=== PATIENT | male | born 1950 | race Caucasian/White ===

== ENCOUNTER 2019-08-20 16:09 | Inpatient (IN) | payer MEDICARE, OTHER ==
[~2019-08-20] VITALS: Ht 167.6 cm; Wt 66.4 kg
[2019-08-20 16:54] LABS: BASOPHILS % 0.3 % (0.0-1.0); EOSINOPHILS % 0.6 % (0.0-6.0); HEMATOCRIT 39.6 % (38.2-49.6); LYMPHOCYTES # (AUTO) 0.4 (1.0-3.2); LYMPHOCYTES % 10.7 % (18.0-39.1); MEAN CORPUSCULAR HEMOGLOBIN 27.5 pg (28-32); MEAN CORPUSCULAR HGB CONC 32.8 g/dL (31-35); MEAN CORPUSCULAR VOLUME 83.7 fL (81-99); MONOCYTES # (AUTO) 0.2 (0.2-0.8); MONOCYTES % 6.1 % (4.4-11.3); NEUTROPHILS # (AUTO) 2.7 (2.1-6.9); PLATELET COUNT 61 x10e3/uL (140-360); RED BLOOD COUNT 4.73 x10e6/uL (4.3-5.7); RED CELL DISTRIBUTION WIDTH 16.7 % (11.7-14.4)
[2019-08-20 17:09] LABS: ALANINE AMINOTRANSFERASE 41 IU/L (0-55); ALBUMIN 3.1 g/dL (3.5-5.0); ALBUMIN/GLOBULIN RATIO 0.9 (0.8-2.0); ALKALINE PHOSPHATASE 150 IU/L (40-150); ANION GAP 14.4 mmol/L (8-16); BLOOD UREA NITROGEN 10 mg/dL (7-26); BUN/CREATININE RATIO 14 (6-25); CARBON DIOXIDE 21 mmol/L (22-29); CHLORIDE 102 mmol/L (98-107); CREATINE KINASE 48 IU/L (30-200); EST GLOMERULAR FILTRATION RATE > 60 ML/MIN (60-); GLUCOSE 250 mg/dL (74-118); POTASSIUM 4.4 mmol/L (3.5-5.1); SODIUM 133 mmol/L (136-145)
[2019-08-20] MEDS: CEFEPIME 1GM/NS 0.9% 50 ML 50 ML IV SCH (17:30)
[2019-08-20] MEDS ORDERED: SODIUM CHLORIDE 0.9% 1000ML 1,000 ML IV STA ×3 (18:34→20:35)
--- NOTE | 2019-08-20 18:56 | Emergency Department Note ---
History of Present Illnes History of Present Illness Chief Complaint: Respiratory Stated Complaint: POSSIBLE RT LOWER LOBE PNEUMONIA/SHINGLES: Chief Complaint Comment sent over from dr hunter's office for further eval of non painful shingles and right lower lobe pneumonia pt not in distress at this time History of Present Illness This is a 68 year old male arrived for RUQ abdominal pain and cough, told by Dr. Nina that he has PNA . 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 Any updates have been documented here. (MIGUELITO JUNIOR DO) Past Medical History Recent Fever: No Clinical Suspicion of Infectio: No New/Unexplained Change in Ment: No Past Medical History: Diabetes Other Medical History: cirrhosis Past Surgical History: Cholecysctectomy Other Surgery: colonoscopy egd (MIGUELITO JUNIOR DO) Social History Smoking Cessation: Former smoker Counseling Performed: No Alcohol Use: None Any Illegal Drug Use: No TB Exposure/Symptoms: No Physically hurt or threatened: No (MIGUELITO JUNIOR DO) Other Last Tetanus: utd Any Pre-Existing Lines (PICC,: No Is patient up to date on immun: Yes Last Flu: utd Last Pneumovax: utd (MIGUELITO JUNIOR DO) Review of Systems Review of Systems Constitutional: fever EENTM: no symptoms Cardiovascular: chest pain Respiratory: cough Gastrointestinal: abdominal pain Integumentary: rash Psychological: no symptoms, as per HPI, anxiety, depressed, emotional problems, other Endocrine: no symptoms, as per HPI, excessive sweating, flushing, intolerance to cold, intolerance to heat, increased hunger, increased thirst, increased urination, unexplained weight gain, unexplained weight loss, other Review of other systems All other systems reviewed and negative. (MIGUELITO JUNIOR DO) Physical Exam Related Data Allergies: Coded Allergies: No Known Allergies (Unverified , 08/20/19) Triage Vital Signs Vital Signs Date Time Temp Pulse Resp B/P (MAP) Pulse Ox O2 Delivery O2 Flow Rate FiO2 08/20/19 16:18 97.8 86 16 149/91 94 (SANDHIR, AMBICA, DO) Physical Exam CONSTITUTIONAL Constitutional: well-developed, well-nourished HENT HENT: normocephalic, atraumatic, oropharynx clear/moist, nose normal HENT - Ear: left ext ear normal, right ext ear normal EYES Eyes: PERRL, conjunctivae normal NECK Neck: ROM normal PULMONARY Pulmonary: effort normal, breath sounds normal CARDIOVASCULAR Cardiovascular: regular rhythm, heart sounds normal, capillary refill normal, normal rate GASTROINTESTINAL Abdominal: soft, bowel sounds normal, tender GENITOURINARY Genitourinary: exam deferred SKIN Skin: warm, dry, rash (vesicular rash noted over abdomen and wrapping around back in a dermtomal pattern ) MUSCULOSKELETAL Musculoskeletal: ROM normal NEUROLOGICAL Neurological: alert, oriented x 3, no gross motor or sensory deficits PSYCHOLOGICAL Psychiatric/behavioral: mood/affect normal, judgement normal (HEMAR, AMBICA, DO) Results Laboratory Result Diagram: 08/20/19 1634 08/20/19 1634 Laboratory Laboratory Tests Test 08/20/19 17:33 08/20/19 16:34 Lactic Acid Level 2.9 mmol/L (0.5-2.0) White Blood Count 3.26 x10e3/uL (4.8-10.8) Red Blood Count 4.73 x10e6/uL (4.3-5.7) Hemoglobin 13.0 g/dL (14.0-18.0) Hematocrit 39.6 % (38.2-49.6) Mean Corpuscular Volume 83.7 fL (81-99) Mean Corpuscular Hemoglobin 27.5 pg (28-32) Mean Corpuscular Hemoglobin Concent 32.8 g/dL (31-35) Red Cell Distribution Width 16.7 % (11.7-14.4) Platelet Count 61 x10e3/uL (140-360) Neutrophils (%) (Auto) 82.0 % (38.7-80.0) Lymphocytes (%) (Auto) 10.7 % (18.0-39.1) Monocytes (%) (Auto) 6.1 % (4.4-11.3) Eosinophils (%) (Auto) 0.6 % (0.0-6.0) Basophils (%) (Auto) 0.3 % (0.0-1.0) Neutrophils # (Auto) 2.7 (2.1-6.9) Lymphocytes # (Auto) 0.4 (1.0-3.2) Monocytes # (Auto) 0.2 (0.2-0.8) Eosinophils # (Auto) 0.0 (0.0-0.4) Basophils # (Auto) 0.0 (0.0-0.1) Absolute Immature Granulocyte (auto 0.01 x10e3/uL (0-0.1) Sodium Level 133 mmol/L (136-145) Potassium Level 4.4 mmol/L (3.5-5.1) Chloride Level 102 mmol/L (98-107) Carbon Dioxide Level 21 mmol/L (22-29) Anion Gap 14.4 mmol/L (8-16) Blood Urea Nitrogen 10 mg/dL (7-26) Creatinine 0.70 mg/dL (0.72-1.25) Estimat Glomerular Filtration Rate > 60 ML/MIN (60-) BUN/Creatinine Ratio 14 (6-25) Glucose Level 250 mg/dL (74-118) Calcium Level 9.0 mg/dL (8.4-10.2) Total Bilirubin 3.1 mg/dL (0.2-1.2) Aspartate Amino Transf (AST/SGOT) 38 IU/L (5-34) Alanine Aminotransferase (ALT/SGPT) 41 IU/L (0-55) Alkaline Phosphatase 150 IU/L (40-150) Creatine Kinase 48 IU/L (30-200) Creatine Kinase MB 1.20 ng/mL (0-5.0) Troponin I 0.056 ng/mL (0-0.300) Total Protein 6.6 g/dL (6.5-8.1) Albumin 3.1 g/dL (3.5-5.0) Globulin 3.5 g/dL (2.3-3.5) Albumin/Globulin Ratio 0.9 (0.8-2.0) Lipase 18 U/L (8-78) Lab results reviewed: Yes Laboratory comments Elevated Lactic noted: 2.9 (MIGUELITO JUNIOR, ) Critical Care Time Total Critical Care Time (min): 35 Critical care time exclusive o: separately billable procedures Critcal care necessary due to: sepsis Critcal care time spent by me: blood dram for specimens, examination of patient, obtaining hx from patient/surrogate, pulse oximetry, re-evaluation of p atient condition Subsequent provider I assumed direction of critical care for this patient from another provider of my specialty. (MIGUELITO JUNIOR DO) Assessment & Plan Assessment & Plan Problems: (1) Severe sepsis (2) Pneumonia (3) Herpes zoster Assessment & Plan Severe Sepsis Time: 1758 1. Source (time: PNA on CXR ) 2. SIRS (time: RR 22 WBC <3 ) 1655 3. Organ Dysfunction (time: 1758) Interventions: Blood cultures collected Lactic acid collected Broad Spectrum antibiotics given Lactic acid #1: 2.9 (time resulted) Lactic acid #2: (time resulted) (MIGUELITO JUNIOR DO) Reassessment Reassessment 08/20/2019 2100 : VOlume reassessment done at bedside with capillary refill at 2 seconds (DEE MARK DO) Depart Disposition: ADMITTED Last Vital Signs Date Time Temp Pulse Resp B/P (MAP) Pulse Ox O2 Delivery O2 Flow Rate FiO2 08/20/19 16:58 98.7 85 22 145/87 99 (MIGUELITO JUNIOR DO) Medications in the ED Cefepime HCl 50 ml @ 100 mls/hr Q24H IV ; Start 08/20/19 at 17:30; Stop 08/27/19 at 17:29 (MIGUELITO JUNIOR DO) MIGUELITO JUNIOR DO August 20, 2019 18:56 DEE MARK DO August 21, 2019 02:36
[2019-08-20] MEDS ORDERED: SODIUM CHLORIDE 0.9% 50ML 0 ML ONE (20:39)
[2019-08-20] MEDS ORDERED: IOPAMIDOL 370 MG/ML 200 ML INFUS..BTL INJ ONE (20:39)
[2019-08-20] MEDS ORDERED: PNEUMOCOCCAL VACCINE POLYVALENT 23 MCG/0.5 ML VIAL IM SCH (23:30)
[2019-08-20 23:55] VITALS: BP 154/94
[2019-08-21] VITALS (10 sets, daily range): BP systolic 137–154; BP diastolic 78–94
[2019-08-21] MEDS: VALACYCLOVIR HCL 500 MG TAB PO SCH ×4 (00:59→22:00)
--- NOTE | 2019-08-21 02:04 | NUR ---
Received pt via stretcher from ED. Pt awake a/o x3 denies discomfort at this time. No s/sx of acute distress noted. Pt not to have red colored rash/blister to rlq of abd and rlq of back with trail leading between both wounds. Blisters to back are closed no drainage noted. Pt orientated to room and hospital policy, verbalized understanding. Call light within reach all personal items in reach. Will cont to mon
[2019-08-21] MEDS: MORPHINE SULFATE INJ 4 MG/ML INJ 1ML IV PRN ×3 (04:09→22:58)
[2019-08-21] MEDS: ONDANSETRON HCL INJ 2MG/ML 2ML 2 MG/ML VIAL IV PRN ×2 (04:09→15:25)
[2019-08-21 05:25] LABS: BASOPHILS % 0.6 % (0.0-1.0); EOSINOPHILS # (AUTO) 0.2 (0.0-0.4); EOSINOPHILS % 5.7 % (0.0-6.0); HEMATOCRIT 35.9 % (38.2-49.6); HEMOGLOBIN 11.8 g/dL (14.0-18.0); LYMPHOCYTES # (AUTO) 0.5 (1.0-3.2); LYMPHOCYTES % 14.2 % (18.0-39.1); MEAN CORPUSCULAR HEMOGLOBIN 27.5 pg (28-32); MEAN CORPUSCULAR HGB CONC 32.9 g/dL (31-35); MEAN CORPUSCULAR VOLUME 83.7 fL (81-99); MONOCYTES # (AUTO) 0.6 (0.2-0.8); NEUTROPHILS # (AUTO) 2.2 (2.1-6.9); NEUTROPHILS % 63.2 % (38.7-80.0); PLATELET COUNT 51 x10e3/uL (140-360); RED BLOOD COUNT 4.29 x10e6/uL (4.3-5.7); RED CELL DISTRIBUTION WIDTH 16.4 % (11.7-14.4)
[2019-08-21 05:51] LABS: ALANINE AMINOTRANSFERASE 34 IU/L (0-55); ALBUMIN 2.6 g/dL (3.5-5.0); ALBUMIN/GLOBULIN RATIO 0.9 (0.8-2.0); ALKALINE PHOSPHATASE 118 IU/L (40-150); ANION GAP 11.9 mmol/L (8-16); BLOOD UREA NITROGEN 8 mg/dL (7-26); BUN/CREATININE RATIO 13 (6-25); CALCIUM 7.5 mg/dL (8.4-10.2); CARBON DIOXIDE 24 mmol/L (22-29); CHLORIDE 102 mmol/L (98-107); CREATININE, SERUM 0.61 mg/dL (0.72-1.25); EST GLOMERULAR FILTRATION RATE > 60 ML/MIN (60-); GLUCOSE 191 mg/dL (74-118); POTASSIUM 3.9 mmol/L (3.5-5.1); SODIUM 134 mmol/L (136-145)
--- NOTE | 2019-08-21 07:00 | NUR ---
RCD PT AT BED PT IS ALERT AND ORIENTED PT RESTING ON BED IV PATENT BY SALINE FLUSH SHINGLES ON RT UPPER CHEST BED LOW AND LOCKED CALL LIGHT IN REACH
[2019-08-21] MEDS ORDERED: PANTOPRAZOLE SO40 MG PO (09:02)
[2019-08-21] MEDS ORDERED: METFORMIN HCL500 MG PO (09:02)
[2019-08-21] MEDS ORDERED: GLIPIZIDE5 MG PO (09:02)
[2019-08-21] MEDS ORDERED: LACTULOSE20 GM/30 M PO (09:02)
[2019-08-21] MEDS ORDERED: XIFAXAN550 MG PO (09:02)
[2019-08-21] MEDS ORDERED: PROPRANOLOL HCL10 MG PO (09:10)
--- NOTE | 2019-08-21 09:51 | Diagnostic Imaging Report ---
EXAMINATION: CHEST SINGLE (PORTABLE) INDICATION: Chest pain COMPARISON: None FINDINGS: LINES/TUBES:EKG leads overlie the chest. LUNGS:The lungs are moderately inflated. Right basilar opacity consistent with subsegmental atelectasis. PLEURA:Moderate right pleural effusion. No significant left pleural effusion. No pneumothorax. MEDIASTINUM:The cardiomediastinal silhouette appears normal in size and shape. BONES/SOFT TISSUES:No acute osseous injury. ABDOMEN:No free air under the diaphragm. IMPRESSION: Moderate right pleural effusion. Associated right basilar opacity, likely subsegmental atelectasis. Signed by: Moustapha Arrieta MD on 08/21/2019 9:48 AM
[2019-08-21] MEDS ORDERED: VALACYCLOVIR HCL 500 MG TAB PO SCH (10:00)
[2019-08-21] MEDS: GLIPIZIDE 5 MG TAB PO SCH (10:00)
[2019-08-21] MEDS: PANTOPRAZOLE SOD 40 MG TABEC PO SCH (10:00)
[2019-08-21] MEDS: LACTULOSE SYRUP 20 GM/30 ML UDC PO SCH (10:00)
[2019-08-21] MEDS: RIFAXIMIN 550 MG TABLET PO SCH ×2 (10:00→16:24)
[2019-08-21] MEDS: AZITHROMYCIN 250 MG TAB PO SCH (10:45)
--- NOTE | 2019-08-21 11:03 | History and Physical ---
HISTORY OF PRESENT ILLNESS: Mr. Grajeda is a 68-year-old man with history of diabetes, hypertension, and liver cirrhosis, that started on July 09 with dry cough, had a syncopal episode on July 16 and July 17, where he was taken to the ER. He had a chest x-ray done there, that shows elevation of right hemidiaphragm with hazy opacity of right lung suspicious for atelectasis. The screen of infection could not be done at that time. The patient continued to complain of cough. Three days ago, developed a right abdominal rash consistent with herpes zoster infection. The patient is still complaining of dry cough and lower chest pain. Repeated chest x-ray shows consolidation, so the patient was sent to the emergency room for admission. PAST MEDICAL HISTORY: He has diabetes. 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 SOCIAL HISTORY: He was a former alcoholic, but he quit 12 years ago. He had never smoked. ALLERGIES: NO KNOWN DRUG ALLERGIES. PAST SURGICAL HISTORY: He had cholecystectomy. PHYSICAL EXAMINATION: GENERAL: Today, he is awake and alert. VITAL SIGNS: Temperature is 98.1, blood pressure is 147/93. HEART: Regular rate. LUNGS: Poor inspiratory effort. ABDOMEN: Distended with some tenderness in the right upper quadrant. LABORATORY DATA: On the blood work; white count 3.51, hemoglobin 11.8, hematocrit 35.9, and platelets are 51,000. Potassium 3.9, creatinine is 0.61, glucose was 191. Bilirubin 2.7. Urine culture and blood cultures are pending. Chest x-ray and abdominal and pelvic CT reports are pending. ASSESSMENT: 1. Right lower lobe pneumonia. 2. Herpes zoster infection. 3. Abdominal distention. 4. Liver cirrhosis. 5. Diabetes type 2 with hyperglycemia. 6. Hypertension. PLAN: At present time is to start the patient on Valtrex 1 g p.o. q.8 hours. Restart home medications. ADA diet, 1800 calories. We are going to get an Infectious Disease consult with Dr. Conn and a Pulmonary consult with Dr. French. Continue IV cefepime. All this was discussed in detail with the patient. All questions were answered to satisfaction. Also, case was discussed with . MD BRYAN Radford/RENE /[id number]
--- NOTE | 2019-08-21 11:13 | Diagnostic Imaging Report ---
EXAM: CT Abdomen and Pelvis WITH intravenous contrast INDICATION: Hyperbilirubinemia COMPARISON: None. TECHNIQUE: Abdomen and pelvis were scanned utilizing a multidetector helical scanner from the lung base to the pubic symphysis after administration of IV contrast. Coronal and sagittal reformations were obtained. Routine protocol was performed. Scan was performed during portal venous phase. IV CONTRAST: 100mL of Isovue 370 ORAL CONTRAST: Water RADIATION DOSE: Total DLP: 289 mGy*cm Dose modulation, iterative reconstruction, and/or weight based adjustment of the mA/kV was utilized to reduce the radiation dose to as low as reasonably achievable. IMPRESSION: I reviewed the images and preliminary report provided by Dr. Carrera and agree with the described findings in the preliminary report. Findings of hepatic cirrhosis with splenomegaly and upper abdominal portosystemic varices consistent with portal hypertension. Small volume abdominal ascites. Large right pleural effusion. Signed by: Moustapha Arrieta MD on 08/21/2019 11:07 AM
[2019-08-21 11:24] LABS: INR 1.15; PROTHROMBIN TIME 15.4 seconds (11.9-14.5)
--- NOTE | 2019-08-21 11:57 | NUR ---
CONSULT Mr. Grajeda is a 68-year-old man with history of diabetes, hypertension, and liver cirrhosis, that started on July 09 with dry cough, had a syncopal episode on July 16 and July 17, where he was taken to the ER. He had a chest x-ray done there, that shows elevation of right hemidiaphragm with hazy opacity of right lung suspicious for atelectasis. The screen of infection could not be done at that time. The patient continued to complain of cough. Three days ago, developed a right abdominal rash consistent with herpes zoster infection. The patient is still complaining of dry cough and lower chest pain. Repeated chest x-ray shows consolidation, so the patient was sent to the emergency room for admission. PAST MEDICAL HISTORY: He has diabetes. 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 SOCIAL HISTORY: He was a former alcoholic, but he quit 12 years ago. He had never smoked. ALLERGIES: NO KNOWN DRUG ALLERGIES. PAST SURGICAL HISTORY: He had cholecystectomy. [id number]
[2019-08-21] MEDS: INSULIN GLARGINE 100 UNITS/ML VIAL SQ SCH ×2 (12:00→21:00)
--- NOTE | 2019-08-21 14:52 | NUR ---
THEY DRAINED 1200 ML DARK YELLOW FLUID SEND SAMPLE FOR LAB
--- NOTE | 2019-08-21 15:00 | NUR ---
PT BACK AFTER PROCEDURE PT IS ALERT AND ORIENTED VITALS CHECKED NO SIGNS OF ANY BLEEDING ON THE NEEDLE SITE RT UPPER BACK
--- NOTE | 2019-08-21 15:09 | Consultation ---
DATE OF CONSULTATION: Pulmonary Consultation The patient of Dr. Cuello. 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 He has had a cough for 6 weeks. Cough has been nonproductive, but he had an episode of syncope or near syncope, history of hypertension, cirrhosis, diabetes. He is complaining of some right-sided pain, which he attributes to herpes zoster. Had history of pneumonia as a child. ALLERGIES: NO KNOWN ALLERGIES. SOCIAL HISTORY: G[facility] in [facility]. Never smoked, drank in the past. PAST SURGICAL HISTORY: Does admit to having gallbladder surgery. MEDICATIONS: Included glipizide, lactulose, cough syrup, metformin, Protonix, Inderal, Robaxin. PHYSICAL EXAMINATION: GENERAL: This is a slight white male, in no acute distress. Looks his stated age. VITAL SIGNS: Temperature 97.8, pulse 86, respirations 16, blood pressure 147/93. HEAD: Normocephalic and atraumatic. EYES: Extraocular movements intact. LUNGS: Diminished breath sounds, right base. HEART: Regular rhythm. ABDOMEN: Obese. Questionable ascites. EXTREMITIES: Nonedematous. IMPRESSION: Right pleural effusion. Question parapneumonic. Question hepatic hydrothorax. PLAN: Thoracentesis, antibiotics, cough suppressant, and continue home medication. MD LIZETTE Martinez/SAGEL /[id number]
--- NOTE | 2019-08-21 15:20 | Diagnostic Imaging Report ---
PROCEDURE: Ultrasound-guided thoracentesis Procedural Personnel Attending physician(s): Moustapha Arrieta MD Fellow physician(s): None Resident physician(s): None Advanced practice provider(s): None Pre-procedure diagnosis: Pleural effusion Post-procedure diagnosis: Same Indication: Pleural effusion with compromised respiration Additional clinical history: None Complications: No immediate complications. IMPRESSION: Ultrasound-guided thoracentesis with drainage of 1200 mL of serous fluid. Plan: Resume care by clinical team. PROCEDURE SUMMARY: - Limited thoracic ultrasound - Ultrasound-guided thoracentesis - Additional procedure(s): None PROCEDURE DETAILS: Pre-procedure Consent: Informed consent for the procedure including risks, benefits and alternatives was obtained and time-out was performed prior to the procedure. Preparation: The site was prepared and draped using maximal sterile barrier technique including cutaneous antisepsis. Anesthesia/sedation Level of anesthesia/sedation: No sedation Anesthesia/sedation administered by: Not applicable Total intra-service sedation time (minutes): NA Limited thoracic ultrasound Limited thoracic ultrasound was performed using a curved transducer. A safe window for thoracentesis was identified. Left hemithorax findings: NA Right hemithorax findings: Large pleural effusion Thoracentesis Local anesthesia was administered. The pleural space was accessed under real-time ultrasound guidance and fluid return confirmed position. The fluid was drained. The catheter was removed, and a sterile bandage was applied. Catheter placed: 5F Shara Post-drainage hemithorax findings: No visible pleural effusion Additional Details Additional description of procedure: None Equipment details: None Specimens removed: Pleural fluid Estimated blood loss (mL): Less than 10 Standardized report: [id number] Attestation Signer name: Moustapha Arrieta MD I attest that I was present for the entire procedure. I reviewed the stored images and agree with the report as written. Signed by: Moustapha Arrieta MD on 08/21/2019 3:10 PM
--- NOTE | 2019-08-21 15:23 | Diagnostic Imaging Report ---
EXAMINATION: CHEST SINGLE (PORTABLE) INDICATION: Postprocedural COMPARISON: Chest radiograph 08/20/2019 FINDINGS: LINES/TUBES:None LUNGS:The lungs are moderately inflated. Mild left basilar patchy opacity. PLEURA:Interval resolution of right pleural effusion status post thoracentesis. No pneumothorax MEDIASTINUM:The cardiomediastinal silhouette appears unchanged in size and shape. BONES/SOFT TISSUES:No acute osseous injury. ABDOMEN:No free air under the diaphragm. IMPRESSION: No pneumothorax status post right thoracentesis. Interval resolution of right pleural effusion. Mild left basilar patchy opacity, most likely subsegmental atelectasis. Signed by: Moustapha Arrieta MD on 08/21/2019 3:17 PM
[2019-08-21] MEDS ORDERED: SODIUM CHLORIDE 0.9% 250ML 250 ML ONE (15:34)
[2019-08-21 16:21] LABS: BODY FLUID TYPE PLEURAL
[2019-08-21 16:22] LABS: BODY FLUID APPEARANCE SL.CLOUDY; BODY FLUID COLOR GREEN
[2019-08-21] MEDS: CEFEPIME 1GM/NS 0.9% 50 ML 50 ML IV SCH (16:25)
[2019-08-21 17:07] LABS: RBC,BODY FLUID 2016 cells/uL; WBC,BODY FLUID 228 cells/uL
[2019-08-21 17:25] LABS: LYMPHOCYTES,BODY FLUID 23 %; MONO/MACROPHG,BODY FLUID 10 %; NEUTROPHILS,BODY FLUID 52 %; OTHER CELLS,BODY FLUID 15 %
--- NOTE | 2019-08-21 18:41 | NUR ---
PT RESTING ON BED BED SIDE REPORT GIVEN TO ONCOMING NURSE
--- NOTE | 2019-08-21 19:20 | NUR ---
Patient received sitting up in bed. AAO x 4. Patient had no complaints of pain. Respirations even and non-labored. Fall precautions implemented. Patient instructed to call for assistance when needed. Call light within reach.
[2019-08-21] MEDS: GUAIFENESIN/CODEINE 10 ML CUP PO PRN (22:58)
--- NOTE | 2019-08-21 23:46 | Consultation ---
DATE OF CONSULTATION: REASON FOR CONSULTATION: Herpes zoster. HISTORY OF PRESENT ILLNESS: This patient is a 68-year-old male with history of diabetes mellitus, liver cirrhosis, comes in with dry cough, not feeling well. Chest x-ray showed right hemidiaphragm with hazy opacity in the right lung suspicious for atelectasis. The patient was also having some cough. He was seen by Pulmonary. During the stay has had this vesicular rash noted on the right upper quadrant of the abdomen. I was asked to see him. Currently lying in bed comfortably. PAST MEDICAL HISTORY: As above. PAST SURGICAL HISTORY: As above. ALLERGIES: NKA. SOCIAL HISTORY: There is no smoking, drug abuse, or alcohol abuse. FAMILY HISTORY: Hypertension. REVIEW OF SYSTEMS: Besides the pain and the cough, HEENT: Negative. PULMONARY: Negative. CARDIAC: Negative. : Negative. SKIN: There are no other rashes except on the abdomen. LABORATORY DATA: White count 3.5, hemoglobin 11.8. His sodium 134, potassium 3.9 with a creatinine 0.61. MEDICATIONS: He is currently on morphine, valacyclovir, azithromycin, cefepime, and metformin. His chest x-ray, chest CT, all noted. He had large right pleural effusion. PHYSICAL EXAMINATION: GENERAL: He is currently alert, oriented, does not seem to be in acute distress. VITAL SIGNS: Stable, afebrile. HEENT: He is not icteric. NECK: Supple. CHEST: A few crackles. COR: S1 and S2. ABDOMEN: Soft. Bowel sounds present. No tenderness. EXTREMITIES: No edema. SKIN: No rash. The patient underwent ultrasound-guided thoracocentesis, 1200 mL of clear liquid was aspirated, studies still pending. IMPRESSION: 1. Right upper quadrant herpes zoster. 2. Pneumonia, community acquired, probably due to incapacity to take a deep breath and cough. 3. Sepsis on admission. 4. Liver cirrhosis. 5. Diabetes mellitus. PLAN: 1. Agree with cefepime. Agree with azithromycin. Agree with Valtrex. We will keep patient on contact isolation. 2. Further recommendations to follow for his herpes zoster on the right upper quadrant of abdomen, liver cirrhosis, diabetes, neuropathy, hypertension, and pneumonia could be aspiration versus inability to take a deep breath versus community-acquired. Agree with choice of antibiotic and 5 days of antibiotic as ordered. MD MONIQUE Webster /[id number]
[2019-08-22] VITALS (8 sets, daily range): BP systolic 119–153; BP diastolic 74–92
--- NOTE | 2019-08-22 05:02 | NUR ---
radioactivity technician called reporting patient's heart rate as 135. Dr. Ewa Cuello paged. Awaiting call back.
[2019-08-22] MEDS: VALACYCLOVIR HCL 500 MG TAB PO SCH ×3 (05:59→22:23)
--- NOTE | 2019-08-22 06:11 | NUR ---
Dr. Cuello called back. New order given for EKG. Reason: Elevated heartt rate of 132-135.
--- NOTE | 2019-08-22 07:00 | NUR ---
Walking rounds done. Patient resting comfortably. BSSR given to oncoming nurse.
[2019-08-22] MEDS ORDERED: FUROSEMIDE 20 MG TAB PO SCH (09:00)
[2019-08-22] MEDS ORDERED: SPIRONOLACTONE 25 MG TAB PO SCH (09:00)
[2019-08-22] MEDS: LACTULOSE SYRUP 20 GM/30 ML UDC PO SCH (09:00)
[2019-08-22] MEDS ORDERED: ONDANSETRON HCL 4 MG ORAL DISINTEGRATING TAB PO PRN (10:00)
[2019-08-22] MEDS: MORPHINE SULFATE INJ 4 MG/ML INJ 1ML IV PRN ×2 (10:30→16:11)
[2019-08-22] MEDS: PROPRANOLOL HCL 10 MG TAB PO SCH (10:45)
[2019-08-22] MEDS: GLIPIZIDE 5 MG TAB PO SCH (10:46)
[2019-08-22] MEDS: RIFAXIMIN 550 MG TABLET PO SCH ×2 (10:46→17:25)
[2019-08-22] MEDS: AZITHROMYCIN 250 MG TAB PO SCH (10:47)
[2019-08-22] MEDS: PANTOPRAZOLE SOD 40 MG TABEC PO SCH (10:48)
[2019-08-22] MEDS: INSULIN GLARGINE 100 UNITS/ML VIAL SQ SCH ×2 (10:50→21:00)
--- NOTE | 2019-08-22 11:04 | Progress Note ---
DATE: 08/22/2019 SUBJECTIVE: Mr. Grajeda is a 68-year-old man with history of diabetes, hypertension, and liver cirrhosis that on July 09 started with dry cough, had a syncopal episode that took him to the emergency room where he had a chest x-ray that showed elevation of right hemidiaphragm and hazy opacity of right lung base. The patient continued to have a cough for syncopal episode, came to the office complaining of right side abdominal rash positive for herpes zoster infection. The patient was complaining of chest pain and shortness of breath and dry cough, so he was sent to the emergency room for admission. After workup, the patient was found to have a right pleural effusion. He underwent thoracentesis and probably effusion is due to his liver cirrhosis. OBJECTIVE: GENERAL: He is awake and alert, and cough is getting better. VITAL SIGNS: Temperature is 97.4, blood pressure 131/89. HEART: Regular rate. LUNGS: Poor inspiratory effort. ABDOMEN: Distended and soft. LABORATORY DATA: Blood work; white count is 3.51, hemoglobin 11.8, hematocrit 35.9, platelets are 51,000, glucose 216. Foster virus is pending. Cultures, urine and blood cultures negative. We are awaiting for thoracic fluid culture results. IMAGING: Chest x-ray done yesterday showed no pneumothorax, status post right thoracentesis, internal resolution of right pleural effusion, mild left basilar patchy opacity, probably atelectasis, had a thoracentesis ultrasound and he had 1200 mL removed. Abdominal and pelvic CT showed hepatic cirrhosis with splenomegaly and upper abdominal portosystemic varices consistent with portal hypertension with large right pleural effusion. ASSESSMENT: 1. A large right pleural effusion, status post thoracentesis. 2. Herpes zoster infection. 3. Abdominal distension. 4. Liver cirrhosis with portal hypertension. 5. Diabetes type 2 with hyperglycemia. 6. Hypertension. PLAN: At present time is to continue Valtrex 1 g p.o. q.8 hours. Restart home medications, ADA diet 1800 calorie, sliding scale with insulin. He is on IV cefepime. We continue to monitor him. We are going to get a GI consult with Dr. Crow. If stable, he will be able to go home tomorrow. All this was discussed with the patient. All questions were answered to satisfaction. I spent more than 30 minutes examining patient, reviewing overnight event, lab results, and discussing plan of care with him. MD BRYAN Radford/RENE /[id number]
--- NOTE | 2019-08-22 12:00 | Progress Note ---
DATE: SUBJECTIVE: The patient is seen and evaluated. Available labs and notes reviewed. is in the room. Discussed with the and questions answered. REVIEW OF SYSTEMS: Complaining of right abdominal and flank rash with burning, itching, and pain. Otherwise, no nausea, no vomiting, no fever, no chills, no chest pain, shortness of breath improved after thoracentesis. OBJECTIVE: VITAL SIGNS: Temperature 97.4, pulse is 123, respirations 20, and blood pressure 131/89. GENERAL: Alert and oriented, no acute distress. CV: S1-S2. CHEST: Equal expansion. Clear to auscultation. No acute distress. ABDOMEN: Soft, nontender. No distention. Right quadrant abdominal lesions noted. EXTREMITIES: Moves all. No acute finding. MEDICATIONS: Reviewed, on valacyclovir, cefepime, Zithromax, and rifaximin. MICROBIOLOGY: Blood culture negative on 08/19. Urine culture is negative on 08/19. Pleural fluid negative from 08/20 for one day so far, also pleural fluid for AFB and fungal pending. RADIOLOGY: Status post ultrasound-guided thoracentesis and drainage of 1200 mL of serous fluid. Chest x-ray showed no pneumothorax, post right thoracentesis with interval resolution of the right pleural effusion, also has mild left basilar patchy opacity and most likely subsegmental atelectasis. ASSESSMENT AND PLAN: 1. Right-sided abdominal herpes zoster. 2. Pneumonia. 3. Pleural effusion. 4. Sepsis on admission. 5. Hepatic cirrhosis. 6. Debility. 7. Diabetes. Continue with antibiotics. Body fluid from pleural effusion showed a white count of 228, seems to be green in color and slightly cloudy with red blood cells of 2016. LDH of 81, glucose of 284. The patient's serology was negative for coronavirus PCR on 08/20/2019. Monitor the patient clinically. Continue with pain management and monitoring the wound/lesions. Discussed with Dr. Conn in details. Please refer to chart for more information. MD STEPHAN Webster/RENE /[id number]
[2019-08-22] MEDS ORDERED: CEFTRIAXONE SOD 1 GM/NS 50 ML 50 ML IV SCH (14:45)
--- NOTE | 2019-08-22 15:16 | Consultation ---
DATE OF CONSULTATION: 08/22/2019 GI consult note CONSULTING PHYSICIAN: Ros Cuello MD. REASON FOR CONSULT: Decompensated alcoholic liver cirrhosis. HISTORY OF PRESENTING ILLNESS: A 68 years old male, who is a patient of my associate, Dr. Luna. He has a longstanding history of decompensated alcoholic liver cirrhosis. He got admitted in this hospital with pneumonia and herpes zoster, currently being treated with antibiotic and an antiviral. GI is being consulted due to his concomitant comorbidities of decompensated alcoholic liver cirrhosis. He has had a CT scan of the abdomen and pelvis with IV contrast. This did show liver cirrhosis with minimal ascites and splenomegaly with portosystemic varices. he also has large right pleural effusion. He also has had thoracentasis.. 1200 mL of serous pleural fluid was drained. He is currently getting spironolactone 50 mg twice daily and Lasix 20 mg daily. The patient has an appointment to see Dr. Luna sometime this month. He will also undergo a screening for hepatocellular carcinoma. Therefore, on a regular basis he gets his liver imaging done. Dr. Luna had ordered MRI which is scheduled sometime next week. REVIEW OF SYSTEMS: Twelve point system reviewed, symptomatology is limited to respiratory and abdominal wall symptoms. Rest of the positive pertinent as per HPI. PAST MEDICAL HISTORY: Type 2 diabetes, alcoholic liver cirrhosis, and portal hypertension. PAST SURGICAL HISTORY: Noncontributory. FAMILY HISTORY: Negative for any GI or [employer] malignancies. SOCIAL HISTORY: Ex heavy consumption of alcohol in the remote past. Quit drinking 12 years ago. No smoking. , lives with his . ALLERGIES: NO KNOWN DRUG ALLERGIES. HOME MEDICATIONS: Glipizide, lactulose, metformin, pantoprazole, propranolol, and rifaximin. INPATIENT MEDICATIONS: Azithromycin 250 mg daily, intravenous cefepime 1 g daily, furosemide 20 mg daily, glipizide 5 mg daily, insulin glargine 15 units q.12 hours, lactulose 20 g p.o. daily, metformin 500 mg twice daily, morphine 4 mg IV q.4 hours as needed, Zofran 4 mg q.4 hours as needed, pantoprazole 40 mg daily, propranolol 10 mg daily, rifaximin 550 mg twice daily, spironolactone 25 mg daily, and valacyclovir 500 mg daily. PHYSICAL EXAMINATION: VITAL SIGNS: Temperature 98.2, pulse 96, respirations 19, blood pressure 121/76, and oxygen saturation 96% on room air. GENERAL: Not in any apparent distress, cirrhotic feces. HEENT: The oral mucosa is moist. Slightly icteric sclerae. CVS: S1-S2 regular. LUNGS: Bilaterally grossly clear with occasional scattered rales. Decreased breath sounds at bases. ABDOMEN: Protuberant belly. Shifting dullness present. Nontender. No palpable mass or hernia. Positive bowel sounds. EXTREMITIES: 1+ pitting bilateral pedal edema. LABORATORY DATA: WBC 3.51, hemoglobin 11.8, hematocrit 35.9, MCV 83.7, and platelet count 51. Sodium 134, potassium 3.9, chloride 102, bicarb 24, BUN 8, creatinine 0.61, and glucose 191. Liver enzymes showed a total bilirubin 2.7, AST 31, ALT 34, and alkaline phosphatase 118. RADIOLOGY DATA: Chest x-ray showed no pneumothorax, status post right thoracentesis. 1200 mL of the right pleural fluid was drained. Interval resolution of the right pleural effusion. Mild left basilar patchy opacity, most likely subsegmental atelectasis. CT scan of the abdomen with IV contrast showed hepatic cirrhosis with splenomegaly and upper abdominal portosystemic varices consistent with portal hypertension. Small volume abdominal ascites, large right pleural effusion. IMPRESSION: 1. Right large pleural effusion is nothing, but right hepatic hydrothorax. 2. Decompensated alcoholic liver cirrhosis with portosystemic varices, splenomegaly. Therefore, he also has underlying portal hypertension. PLAN: From a liver standpoint, the patient should be strictly on low-salt diet. He should be given oral dual diuretic therapy. Lasix and spironolactone should be given in the ratio of 1:4. Therefore, I am taking the liberty to increase Lasix to 40 mg daily and spironolactone 200 mg daily. Both diuretics should be given in the morning. The patient stated that he is having 7-8 loose bowel movements with daily lactulose. Lactulose dose should be titrated to have him one or two bowel movement daily. I do not give lactulose to induce diarrhea. Agree to continue Xifaxan for prevention of hepatic encephalopathy. The patient needs to follow up with Dr. Luna in her clinic within one week after discharge. Continue antibiotic as well as antiviral as before. The patient can be discharged from GI standpoint. If antibiotic can be switched to oral, an oral antibiotic he can take home if indicated. I thank, Dr. Cuello, for allowing me to participate in the care of this patient. Meet Gant MD SA/RENE /[id number] GERALD
[2019-08-22] MEDS: SPIRONOLACTONE 25 MG TAB PO SCH (17:25)
[2019-08-22] MEDS: GUAIFENESIN/CODEINE 10 ML CUP PO PRN (20:52)
[2019-08-22] MEDS: METFORMIN HCL 500 MG TAB PO SCH (20:52)
[2019-08-23] VITALS: BP 114/75
[2019-08-23 04:00] VITALS: BP 122/76
[2019-08-23 05:10] LABS: BASOPHILS % 0.8 % (0.0-1.0); EOSINOPHILS # (AUTO) 0.6 (0.0-0.4); EOSINOPHILS % 12.1 % (0.0-6.0); HEMATOCRIT 38.5 % (38.2-49.6); HEMOGLOBIN 12.8 g/dL (14.0-18.0); LYMPHOCYTES # (AUTO) 1.2 (1.0-3.2); LYMPHOCYTES % 24.3 % (18.0-39.1); MEAN CORPUSCULAR HEMOGLOBIN 28.2 pg (28-32); MEAN CORPUSCULAR HGB CONC 33.2 g/dL (31-35); MEAN CORPUSCULAR VOLUME 84.8 fL (81-99); MONOCYTES # (AUTO) 0.8 (0.2-0.8); MONOCYTES % 17.2 % (4.4-11.3); NEUTROPHILS # (AUTO) 2.2 (2.1-6.9); PLATELET COUNT 63 x10e3/uL (140-360); RED BLOOD COUNT 4.54 x10e6/uL (4.3-5.7)
[2019-08-23 05:35] LABS: ANION GAP 14.7 mmol/L (8-16); BLOOD UREA NITROGEN 10 mg/dL (7-26); BUN/CREATININE RATIO 16 (6-25); CALCIUM 8.3 mg/dL (8.4-10.2); CARBON DIOXIDE 23 mmol/L (22-29); CHLORIDE 101 mmol/L (98-107); CREATININE, SERUM 0.62 mg/dL (0.72-1.25); EST GLOMERULAR FILTRATION RATE > 60 ML/MIN (60-); GLUCOSE 117 mg/dL (74-118); POTASSIUM 3.7 mmol/L (3.5-5.1); SODIUM 135 mmol/L (136-145)
[2019-08-23] MEDS: VALACYCLOVIR HCL 500 MG TAB PO SCH ×2 (06:00→15:36)
--- NOTE | 2019-08-23 06:14 | Diagnostic Imaging Report ---
EXAMINATION: CHEST 2 VIEWS INDICATION: Chest pain COMPARISON: 08/21/2019 FINDINGS: PA and lateral views TUBES and LINES: None. LUNGS: Lungs are well inflated. Lungs are clear. There is no evidence of pneumonia or pulmonary edema. PLEURA: Trace left pleural effusion. No pneumothorax. HEART AND MEDIASTINUM: The cardiomediastinal silhouette is unremarkable. BONES AND SOFT TISSUES: No acute osseous lesion. Soft tissues are unremarkable. UPPER ABDOMEN: No free air under the diaphragm. IMPRESSION: No acute thoracic radiographic abnormality. Signed by: Valdo Khan MD on 08/23/2019 6:10 AM
--- NOTE | 2019-08-23 06:53 | NUR ---
Patient resting comfortably. No acute distress noted. Shift report given to oncoming nurse regarding patient's status.
[2019-08-23 08:13] VITALS: BP 125/82
[2019-08-23 08:30] VITALS: BP 125/82
[2019-08-23] MEDS ORDERED: FUROSEMIDE 20 MG TAB PO SCH (09:00)
[2019-08-23] MEDS ORDERED: FUROSEMIDE 40 MG TAB PO SCH (09:00)
[2019-08-23] MEDS: METFORMIN HCL 500 MG TAB PO SCH (09:28)
[2019-08-23] MEDS: GLIPIZIDE 5 MG TAB PO SCH (09:28)
[2019-08-23] MEDS: RIFAXIMIN 550 MG TABLET PO SCH (09:29)
[2019-08-23] MEDS: PROPRANOLOL HCL 10 MG TAB PO SCH (09:31)
[2019-08-23] MEDS: SPIRONOLACTONE 25 MG TAB PO SCH (09:32)
[2019-08-23] MEDS: LACTULOSE SYRUP 20 GM/30 ML UDC PO SCH (09:33)
[2019-08-23] MEDS: PANTOPRAZOLE SOD 40 MG TABEC PO SCH (09:33)
[2019-08-23 09:44] VITALS: BP 125/82
[2019-08-23] MEDS: INSULIN GLARGINE 100 UNITS/ML VIAL SQ SCH (10:03)
[2019-08-23 12:00] VITALS: BP 109/81
--- NOTE | 2019-08-23 12:03 | Progress Note ---
DATE: SUBJECTIVE: The patient was evaluated, discussed with the nurse and discussed with the patient's . The patient is stable with some discomfort at the site of the lesions on abdomen and back, on the right side of his trunk. No nausea, vomiting, fever, chills, chest pain or shortness of breath. OBJECTIVE: VITAL SIGNS: Temperature 98.2, pulse 107, respirations 19, blood pressure 125/82. GENERAL: Alert and oriented in no acute distress. CV: S1 and S2. CHEST: Equal expansion. Clear to auscultation. No acute distress. ABDOMEN: Soft, nontender. No distention. HEENT: Moist. No pallor. No JVD. SKIN: Right-sided abdomen and back lesions noted. The patient still has a large blister on back, which still has some fluid in it. MEDICATIONS/ANTIBIOTICS: The patient is on valacyclovir and Rocephin. LABORATORY STUDIES: White count is 4.78, hemoglobin 12.8, and platelets 63, improved from 51. Sodium 135, potassium 3.7, creatinine 0.62. Coronavirus PCR not detected on 08/20/2019. MICROBIOLOGY STUDIES: Blood culture 08/20/2019 negative. Urine culture 08/20/2019 negative. Pleural fluid 08/21/2019 negative. 24 hours pleural fluid AFB and fungal pending. RADIOLOGY STUDIES: Chest x-ray from today showed no acute thoracic radiographic abnormality. ASSESSMENT AND PLAN: 1. Herpetic zoster of the right side of the abdomen and right side on the back with lesion/blisters. 2. Pleural effusion - status post aspiration and culture negative so far with fungal AFB pending. 3. Pneumonia. 4. Sepsis on admission. 5. Hepatic cirrhosis. 6. Diabetes. 7. Debility. 8. Discussed with Dr. Cuello, discharge planning in progress. Okay to discharge from ID point of view with acyclovir 3 times a day for 7 days. Patient already has a prescription per my discussion with Dr. Cuello for acyclovir at home for a total of 10 days. This case was discussed with Dr. Conn. Please refer to chart for more information. Dictated by Tino Joshi PA-C (Al) Godwin Conn MD /MODL /[id number]
--- NOTE | 2019-08-23 15:39 | NUR ---
Callled Dr Qureshi at [phone] to request okay for discharge.
--- NOTE | 2019-08-24 00:25 | Progress Note ---
DATE: 08/23/2019 SUBJECTIVE: Mr. Grajeda is a 68-year-old man with history of diabetes, hypertension, liver cirrhosis, who in July first started with cough, had 2 syncopal episodes, had to go to the emergency room. He is still continuing to have dry cough. He saw ENT and had an x-ray done that showed probably infiltrate. He also developed right-sided abdominal herpes zoster infection. He had a thoracentesis done here. He was found to have liver cirrhosis with portal hypertension, and started on Lasix and Aldactone. He is also on antiviral medication and the plan is to discharge him home and follow up as an outpatient. PHYSICAL EXAMINATION: GENERAL: He is awake and alert. He is doing better. VITAL SIGNS: Temperature is 98.2, blood pressure 125/82. HEART: Regular rate. LUNGS: Clear to auscultation with decreased sounds on the right base. ABDOMEN: Distended and soft. LABORATORY DATA: On the blood work; white count is 4.78, hemoglobin is 12.8, hematocrit is 38.5. Potassium 3.7, creatinine is 0.62, glucose 117. Coronavirus was negative. IMAGING: Chest x-ray done today shows no acute thoracic radiographic abnormalities. DISCHARGE DIAGNOSES: 1. Large right pleural effusion, status post thoracentesis. 2. Herpes zoster infection. 3. Liver cirrhosis with portal hypertension. 4. Diabetes type 2 with hyperglycemia. 5. Hypertension. PLAN: At present time is to discharge the patient home on Valtrex 1 g p.o. q.8 hours, trauma Gold for pain. Continue ADA diet and insulin, and other home medications. He is also going to be on Lasix 40 mg daily and Aldactone 100 mg daily. He needs follow up with me in one week, with Dr. Luna also sometime next week. He is to call me or come back to the emergency room if any recurrent problems. All this was discussed with the patient and at bedside. All questions were answered to satisfaction. Please see home medication reconciliation list. MD BRYAN Radford/MODL /[id number]
== END 2019-08-23 15:47 | disposition home or self-care (01) | DRG 871 ==
LOC: ER 16:09 → ERHOLD 20:32 → MED/SURG2 22:10
PROVIDERS: ADMIT Internal Medicine; ATTEND Internal Medicine
PROC: 0W993ZZ Drainage of Right Pleural Cavity, Percutaneous Approach (ICD-10-PCS; principal; 2019-08-21)
DX: A41.9 Sepsis, unspecified organism (principal); J18.1 Lobar pneumonia, unspecified organism; J90 Pleural effusion, not elsewhere classified; K76.6 Portal hypertension; I85.10 Secondary esophageal varices without bleeding; B02.9 Zoster without complications; I10 Essential (primary) hypertension; E11.65 Type 2 diabetes mellitus with hyperglycemia; D69.59 Other secondary thrombocytopenia; R16.1 Splenomegaly, not elsewhere classified; K70.31 Alcoholic cirrhosis of liver with ascites; Z03.818 Encounter for observation for suspected exposure to other biological agents ruled out
CPT/HCPCS: 32555; 36415; 71045; 71046; 74177; 74470; 80048; 80053; 82550; 82553; 82945; 82948; 83605; 83615; 83690; 84157; 84484; 85025; 85610; 87040; 87070; 87071; 87086; 87102; 87116; 87205; 87206; 87635; 88112; 88305; 89051; 93005; 93041; 99284; J0692; J0696; J1815; J2270; J2405; J7030; J7050; Q0162; Q9967

== ENCOUNTER → 2019-09-13 | Outpatient (CLI) | payer MEDICARE ==
[~2019-09-13] MED LIST: GLIPIZIDE5 MG PO; LACTULOSE20 GM/30 M PO; METFORMIN HCL500 MG PO; PANTOPRAZOLE SO40 MG PO; PROPRANOLOL HCL10 MG PO; XIFAXAN550 MG PO
--- NOTE | 2019-09-13 11:32 | Diagnostic Imaging Report ---
EXAMINATION: CHEST 2 VIEWS INDICATION: ^[id number] ^[id number] ^COUGH COMPARISON: None FINDINGS: PA and lateral views TUBES and LINES: None. LUNGS: Lungs are well inflated. Lungs are clear. There is no evidence of pneumonia or pulmonary edema. PLEURA: No pleural effusion or pneumothorax. HEART AND MEDIASTINUM: The cardiomediastinal silhouette is unremarkable. BONES AND SOFT TISSUES: No acute osseous lesion. Soft tissues are unremarkable. UPPER ABDOMEN: No free air under the diaphragm. IMPRESSION: No acute thoracic radiographic abnormality. Signed by: Valdo Khan MD on 09/13/2019 11:29 AM
== END ==
LOC: RAD 10:31
PROVIDERS: ATTEND Internal Medicine
DX: R05 Cough (principal)
CPT/HCPCS: 71046

== ENCOUNTER → 2021-09-08 | Outpatient (CLI) | payer MEDICARE | LOC: RAD 13:18 | PROVIDERS: ATTEND Internal Medicine | DX: R05.9 Cough, unspecified (principal) | CPT/HCPCS: 71046 ==

== ENCOUNTER 2021-11-10 13:28 | Emergency (ER) | payer MEDICARE ==
[~2021-11-10] VITALS: Ht 167.6 cm; Wt 66.2 kg
== END 2021-11-10 15:59 | disposition home or self-care (01) ==
LOC: ER 13:42
DX: R60.9 Edema, unspecified (principal); E11.9 Type 2 diabetes mellitus without complications; K76.9 Liver disease, unspecified
CPT/HCPCS: 93926; 93971; 99283

== ENCOUNTER → 2021-12-20 | Outpatient (CLI) | payer MEDICARE | LOC: CT 15:05 | PROVIDERS: ATTEND Internal Medicine | DX: J90 Pleural effusion, not elsewhere classified (principal) | CPT/HCPCS: 71250 ==